=== PATIENT | female | born 1975 | race Two or more races ===

== ENCOUNTER → 2018-03-22 | Outpatient (CLI) | payer BC ==
--- NOTE | 2018-03-22 13:51 | US ---
EXAMINATION TYPE: US transvaginal DATE OF EXAM: 03/22/2018 COMPARISON: NONE CLINICAL HISTORY: N92.0 Menorrhea. dub, has IUD TECHNIQUE: Transvaginal (TV). Transvaginal sonographic images of the pelvis were acquired. EXAM MEASUREMENTS: Uterus: 9.8 x 5.5 x 6.1 cm Endometrial Stripe: 2.0 cm Right Ovary: 2.4 x 1.7 x 3.0 cm Left Ovary: 3.2 x 2.1 x 1.9 cm Some limitations due to overlying bowel gas. 1. Uterus: Anteverted mildly heterogeneous echopattern 2. Endometrium: thickened, IUD appears appropriately placed 3. Right Ovary: wnl 4. Left Ovary: wnl as seen 5. Bilateral Adnexa: wnl 6. Posterior cul-de-sac: no free fluid seen Endometrium is abnormally thickened and fundus up to just over 20 mm. No free fluid is seen in pelvis . Both ovaries are identified with peripheral follicle in right ovary seen. No suspicious adnexal jesse s are present. IMPRESSION: Heterogeneous thickened endometrium particularly towards fundus.
--- NOTE | 2018-03-23 11:49 | MM ---
Reason for exam: screening (asymptomatic). Last mammogram was performed 8 years and 1 month ago. History: Cancelled Right US Needle Biopsy of the right breast, February 16, 2010. Physical Findings: A clinical breast exam by your physician is recommended on an annual basis and results should be correlated with mammographic findings. MG 3D Screening Mammo W/Cad Bilateral CC and MLO view(s) were taken. Prior study comparison: February 26, 2010, bilateral diagnostic digital mammog. The breast tissue is heterogeneously dense. This may lower the sensitivity of mammography. Finding: There is a typically benign circumscribed round skin lesions bilaterally. No suspicious abnormality. ASSESSMENT: Benign, BI-RAD 2 RECOMMENDATION: Routine screening mammogram of both breasts in 1 year.
== END | disposition home or self-care (01) ==
LOC: RADUSWWP 12:08
PROVIDERS: ATTEND Family Medicine
DX: Z12.31 Encounter for screening mammogram for malignant neoplasm of breast (principal); R93.8 Abnormal findings on diagnostic imaging of other specified body structures; N92.0 Excessive and frequent menstruation with regular cycle
CPT/HCPCS: 76830; 77063; 77067

== ENCOUNTER → 2021-05-07 | Outpatient (CLI) | payer BC ==
--- NOTE | 2021-05-07 16:35 | ECHOS ---
STRESS ECHOCARDIOGRAM INDICATIONS: Chest pain BASELINE HEART RATE: 71 BASELINE BLOOD PRESSURE: 102/73 MAXIMUM HEART RATE: 160 MAXIMUM BLOOD PRESSURE: 154/54 85% MPHR: 150 100% MPHR: 176 METS: 11.7 MAXIMUM STAGE REACHED: 4 TOTAL EXERCISE TIME: 10:01 CLINICAL INFORMATION: Baseline EKG revealed normal sinus rhythm without significant ST-T changes. Patient walked on standard [place] protocol for 10 minutes, achieved a maximal heart rate of 160 beats per minute, developed fatigue and shortness of breath but did not have any angina or arrhythmia. EKG did not reveal any ST-segment changes to indicate ischemia. There was a lot of baseline artifact, but EKG at peak exercise did not reveal any ischemic changes. Patient did not have angina. There was no arrhythmia. By EKG criteria, this is a negative stress with excellent exercise capacity. Baseline echo images revealed normal wall motion and wall thickening of all segments. At peak exercise there was good augmentation of left ventricular wall motion and wall thickening of all segments, suggesting that there is no evidence of stress-induced ischemia on this study. FINAL IMPRESSION: 1. Excellent exercise capacity with a negative stress test by EKG criteria. 2. Normal stress echocardiogram without evidence of ischemia. MMODL / IJN: [id number] /
== END | disposition home or self-care (01) ==
LOC: RADNMMAIN 09:15
PROVIDERS: ATTEND Family Medicine
DX: R07.9 Chest pain, unspecified (principal)
CPT/HCPCS: 93351

== ENCOUNTER → 2021-05-26 | Outpatient (CLI) | payer BC ==
--- NOTE | 2021-05-26 14:17 | MM ---
Reason for exam: screening (asymptomatic). Last mammogram was performed 3 years and 2 months ago. History: Cancelled Right US Needle Biopsy of the right breast, February 16, 2010. Physical Findings: A clinical breast exam by your physician is recommended on an annual basis and results should be correlated with mammographic findings. MG 3D Screening Mammo W/Cad Bilateral CC and MLO view(s) were taken. XCCL view(s) were taken of the left breast. Prior study comparison: March 22, 2018, bilateral MG 3d screening mammo w/cad. The breast tissue is extremely dense which could obscure a lesion on mammography. There is no discrete abnormality. ASSESSMENT: Negative, BI-RAD 1 RECOMMENDATION: Routine screening mammogram of both breasts in 1 year.
== END | disposition home or self-care (01) ==
LOC: RADMAMWWP 09:18
PROVIDERS: ATTEND Family Medicine
DX: Z12.31 Encounter for screening mammogram for malignant neoplasm of breast (principal)
CPT/HCPCS: 77063; 77067

== ENCOUNTER 2022-01-07 08:04 | Day surgery (SDC) | payer BC ==
[2022-01-05 14:17] VITALS: BMI 28.3
[~2022-01-07 08:04] MED LIST: LACTATED RINGERS 1,000 ML IV SCH
[2022-01-07 08:30] VITALS: TEMP 96.9
[2022-01-07] MEDS ORDERED: fentaNYL (PF) 50 MCG/ML 2 ML AMP ONE (08:42)
[2022-01-07] MEDS ORDERED: MIDAZOLAM 2 MG/2 ML VIAL ONE (08:42)
[2022-01-07] MEDS ORDERED: PROPOFOL 10 MG/ML 20 ML VIAL IV ONE (08:42)
[2022-01-07] MEDS ORDERED: LIDOCAINE 2% INJ 20 MG/ML (2 ML VIAL) ONE (08:42)
--- NOTE | 2022-01-07 09:06 | P.PCN ---
Date of Procedure: 01/07/22 Procedure(s) Performed: Brief history: Patient is a pleasant 46-year-old white female scheduled for an elective upper endoscopy as well as colonoscopy as a part of evaluation of chrpoc abdominal pain and chronic diarrhea for the last several yearsduration. Procedure performed: Esophagogastroduodenoscop with biopsy Colonoscopy with biopsy Preoperative diagnosis: chronic abdominal pain Diarrhea of several months duration Anesthesia: MAC Procedure: After informed consent was obtained from the patient was brought into the endoscopy unit and IV sedation was administered by anesthesia under continuous monitoring. Initially upper endoscopy was done. The Olympus GF 160 video endoscope was inserted inserted into the mouth and esophagus intubated without any difficulty and was gradually advanced into the stomach and duodenum and carefully examined. The bulb and second part of the duodenum appeared normal. biopsies were done from the duodenum to rule out celiac disease.The scope was then withdrawn into the stomach adequately insufflated with air and upon careful examination the antrum had mild gastritis and biopsies were done from this area.The body, cardia and fundus appeared normal. The scope was then withdrawn into the esophagus. The GE junction was located at 40 cm to the incisors. It appeared regular with no erythema erosions or ulcerations. Rest of the esophagus appeared normal. Patient tolerated the procedure well. At this time the patient continued to remain sedation. Initial digital rectal examination was normal. Olympus CF 160 video colonoscope was then inserted into the rectum and gradually advanced to the cecum without any difficulty. Careful examination was performed as the scope was gradually being withdrawn. The prep was excellent. The cecum, ascending colon, transverse colon, descending colon, sigmoid colon and rectum appeared normal. random biopsies were done from ascending and descending colon to rule out microscopic/collagenous colitis Retroflexion was performed in the rectum and no lesions were noted. Patient tolerated the procedure well. Impression: 1.Upper endoscopy revealed mild antral gastritis and LA grade A reflux esophagitis 2.Colonoscopy was within normal limits with no evidence of colitis or colorectal neoplasia Recommendations: Findings of this examination were discussed with the patient as well umair family. She was advised to follow with the biopsy results. She can have a repeat screening colonoscopy in 10 years.
[2022-01-07 09:20] VITALS: PULSE 79; RESP 18
[2022-01-07 09:35] VITALS: BP 104/64
== END 2022-01-07 10:02 | disposition home or self-care (01) ==
LOC: ORWHC2ENDO 08:04
PROVIDERS: ATTEND Internal Medicine Gastroenterology
DX: Z12.11 Encounter for screening for malignant neoplasm of colon (principal); K90.0 Celiac disease; K21.00 Gastro-esophageal reflux disease with esophagitis, without bleeding; K29.50 Unspecified chronic gastritis without bleeding; Q85.00 Neurofibromatosis, unspecified; Z98.891 History of uterine scar from previous surgery; Z98.890 Other specified postprocedural states
CPT/HCPCS: 81025; 88305; 45380; 43239; J2250; J3010; J2704; J2001

== ENCOUNTER → 2022-09-21 | Outpatient (CLI) | payer OTHER ==
--- NOTE | 2022-09-21 21:25 | MR ---
EXAMINATION TYPE: MR brain wo/w con DATE OF EXAM: 09/21/2022 COMPARISON: MRI brain December 25, 2014 HISTORY: Neurofibromatosis Type 1, seizures. TECHNIQUE: Multiplanar, multisequence images of the brain and brainstem is performed without and with IV contras t, utilizing 6.5 mL intravenous Gadavist . FINDINGS: Diffusion weighted images demonstrate no evidence of a recent infarct or other diffusion ab normality. The ventricular system and cisternal spaces are normal in size and appearance. The brain volume is age appropriate. There are few scattered small foci of T2 hyperintensity throughout the whi te matter bilaterally. Lesions are nonspecific in appearance and distribution. Approximately 8 scatte red small lesions are redemonstrated. T2 coronal weighted images show hippocampal gyri to appear symm etric and felt within normal limits. T2 Star weighted images show no suspicious intraparenchymal bloo d product. Midline structures redemonstrate normal morphology. Slightly low-lying cerebellar tonsils and to leve l of foramen magnum redemonstrated. No progression from prior study. No greater than 5 mm inferior ex tension noted. Post contrast images demonstrate no abnormal enhancement. The dural venous sinuses quinn ear patent. The visualized sinuses are clear and the globes are intact. IMPRESSION: Mild to minimal nonspecific white matter changes redemonstrated. No abnormal enhancement seen. No significant change from prior MRI.
== END | disposition home or self-care (01) ==
LOC: RADMRIMAIN 19:24
PROVIDERS: ATTEND Psychiatry & Neurology Neurology
DX: G93.89 Other specified disorders of brain (principal); Q85.01 Neurofibromatosis, type 1; R56.9 Unspecified convulsions
CPT/HCPCS: 70553; A9585

== ENCOUNTER → 2023-03-24 | Outpatient (CLI) | payer OTHER ==
--- NOTE | 2023-03-24 13:43 | XR ---
EXAMINATION TYPE: XR forearm RT DATE OF EXAM: 03/24/2023 COMPARISON: None HISTORY: Injury, pain and tenderness TECHNIQUE: 2 view right forearm FINDINGS: No acute fracture or dislocation is evident. Joint spaces are preserved. Anterior fat-pad i s normal. No elevation of the posterior fat pad is evident. Soft tissues appear unremarkable. IMPRESSION: 1. No acute osseous abnormality right forearm
--- NOTE | 2023-03-24 13:44 | XR ---
EXAMINATION TYPE: XR elbow complete RT DATE OF EXAM: 03/24/2023 COMPARISON: None HISTORY: Injury, pain TECHNIQUE: 3 view right elbow FINDINGS: Radius aligns normally with the humerus. No acute fracture or dislocation is evident. Anter ior fat-pad is normal. No elevation of posterior fat pad is evident. Soft tissues are normal. Follow up exams can be performed 7-10 days from acute trauma for continued pain. IMPRESSION: 1. No acute osseous abnormality right elbow
--- NOTE | 2023-03-24 13:45 | XR ---
EXAMINATION TYPE: XR wrist complete RT DATE OF EXAM: 03/24/2023 COMPARISON: None HISTORY: Injury, pain TECHNIQUE: 4 view right wrist FINDINGS: No acute fracture or dislocation is evident. Joint spaces are preserved. Soft tissues are u nremarkable. Follow up exams can be performed 7-10 days from acute trauma for continued pain. There is pain at the anatomic snuffbox, nuclear medicine bone scan could be performed for additional evaluation. IMPRESSION: 1. No acute osseous abnormality right wrist
== END | disposition home or self-care (01) ==
LOC: RADXRMAIN 12:03
PROVIDERS: ATTEND Emergency Medicine
DX: S50.01XA Contusion of right elbow, initial encounter (principal); S50.11XA Contusion of right forearm, initial encounter; S60.211A Contusion of right wrist, initial encounter

== ENCOUNTER 2024-11-25 09:28 | Observation (INO) | payer OTHER ==
--- NOTE | 2024-11-25 09:42 | ED ---
Abdominal Pain HPI - General Chief Complaint: Abdominal Pain Stated Complaint: Irreg CT Time Seen by Provider: 11/25/24 09:41 Source: patient, RN notes reviewed, old records reviewed Mode of arrival: ambulatory Limitations: no limitations - History of Present Illness Initial Comments: 49-year-old female presented to the ER for evaluation of abnormal CT scan. Patient states for the past 3 weeks she has been having right-sided abdominal pain which prompted outpatient CAT scan to be ordered. She states the pain is sharp in nature with no radiation. She admits to nausea but denies any vomiting. She states her stools are soft but this is normal for her. She denies any dysuria, increase in frequency or hematuria. Patient does report intermittent vaginal discharge but states she is premenopausal. She states vaginal bleeding is nothing alarming". She has not taken anything for pain at this time.Upon chart review, CT abdomen pelvis completed outpatient on 11-25-2024 concerning of right adnexa possibly representing tubo-ovarian abscess in the setting of PID versus ovarian torsion. Patient sent to the emergency department for ultrasound and further evaluation. She denies any fevers, chills, chest pain, shortness of breath or peripheral edema. No other complaints. - Related Data Home Medications Medication Instructions Recorded Confirmed No Known Home Medications 01/05/22 11/25/24 Allergies Allergy/AdvReac Type Severity Reaction Status Date / Time No Known Allergies Allergy Verified 11/25/24 12:19 Review of Systems ROS Statement: Those systems with pertinent positive or pertinent negative responses have been documented in the HPI. ROS Other: All systems not noted in ROS Statement are negative. Past Medical History Past Medical History: Osteoarthritis (OA) Additional Past Medical History / Comment(s): NEUROFIBROMATOSIS, THICK STICKY STOOL History of Any Multi-Drug Resistant Organisms: None Reported Past Surgical History: Section Additional Past Surgical History / Comment(s): LASER EYE SURGERY, D & C, C SECTION X2 Past Anesthesia/Blood Transfusion Reactions: Motion Sickness Past Psychological History: Anxiety, Depression Smoking Status: Former smoker Past Alcohol Use History: Rare Past Drug Use History: None Reported - Past Family History Father Family Medical History: Cancer General Exam - General Exam Comments Initial Comments: Visual Physical Exam Vital signs reviewed General: Well-appearing, nontoxic, no acute distress. Head: Normocephalic, atraumatic Eyes: PERRLA, EOMI ENT: Airway patent Chest: Nonlabored breathing Skin: No visual rash, normal skin tone Neuro: Alert and oriented 3 Musculoskeletal: No gross abnormalities Limitations: no limitations General appearance: alert, in no apparent distress Respiratory exam: Present: normal lung sounds bilaterally. Absent: respiratory distress, wheezes, rales, rhonchi, stridor Cardiovascular Exam: Present: regular rate, normal rhythm, normal heart sounds. Absent: systolic murmur, diastolic murmur, rubs, gallop, clicks GI/Abdominal exam: Present: soft, tenderness (Exquisite right lower quadrant), normal bowel sounds Neurological exam: Present: alert, oriented X3, CN II-XII intact Skin exam: Present: warm, dry, intact, normal color. Absent: rash Course Vital Signs 11/25/24 09:31 Temperature 97.9 F Pulse Rate 98 Respiratory 20 Rate Blood Pressure 132/86 O2 Sat by Pulse 100 Oximetry - Reevaluation(s) Reevaluation #1: 11/25/24 12:[address] Esteban. He advised on observation admission for IV antibiotics and further evaluation. Medical Decision Making - Medical Decision Making I performed the quick note portion of this chart. Electronically signed by Prabhakar Estrada PA-C Was pt. sent in by a medical professional or institution ([facility], HIGH SCHOOL ENGLISH TEACHER, urgent care, hospital, or residential...) When possible be specific @ -Patient sent by PCP for abnormal CT scan. Did you speak to anyone other than the patient for history (EMS, parent, family, police, friend...)? What history was obtained from this source @ -No Did you review nursing and triage notes (agree or disagree)? Why? @ -I reviewed and agree with nursing and triage notes Were old charts reviewed (outside hosp., previous admission, EMS record, old EKG, old radiological studies, urgent care reports/EKG's, residential records)? Report findings @ -Yes, I reviewed outpatient CT scan completed on 11-25-2024. There is a heterogeneous appearance of the right adnexa possibly representing tubo-ovarian abscess in the setting of PID versus ovarian torsion. Cannot rule out mass. Appendix visualized and within normal limits. IUD present. Differential Diagnosis (chest pain, altered mental status, abdominal pain women, abdominal pain men, vaginal bleeding, weakness, fever, dyspnea, syncope, headache, dizziness, GI bleed, back pain, seizure, CVA, palpatations, mental health, musculoskeletal)? @ -Differential Abdominal Pain Women: Appendicitis, Cholecystitis, diverticulosis, ischemic bowel, pancreatitis, hepatitis, UTI, gastroenteritis, AAA, incarcerated hernia, bowel obstruction, constipation, inflammatory bowel, hepatitis, peptic ulcer disease, splenic infarction, perforated viscus, vulvitis, ovarian torsion, PID, kidney stone, placenta abruption, this is not meant to be an all-inclusive list EKG interpreted by me (3pts min.). @ -None done X-rays interpreted by me (1pt min.). @ -None done CT interpreted by me (1pt min.). @ -None done U/S interpreted by me (1pt. min.). @ -Transvaginal ultrasound showing a vascular mass to the right adnexa possibly reflecting tubo-ovarian abscess. Neoplasm not excluded. No definitive ultrasound evidence of torsion. What testing was considered but not performed or refused? (CT, X-rays, U/S, labs)? Why? @ -None What meds were considered but not given or refused? Why? @ -Patient refused analgesic medications. Did you discuss the management of the patient with other professionals (professionals i.e. , PA, HIGH SCHOOL ENGLISH TEACHER, lab, RT, psych nurse, social worker psychiatric, human resources office assistant, teacher, chief lending officer, assistant case manager)? Give summary @ -Case discussed with Dr. Esteban who advised on admission and IV antibiotics. Was smoking cessation discussed for >3mins.? @ -No Was critical care preformed (if so, how long)? @ -No Were there social determinants of health that impacted care today? How? (Homelessness, low income, unemployed, alcoholism, drug addiction, transportation, low edu. Level, literacy, decrease access to med. care, longterm, rehab)? @ -No Was there de-escalation of care discussed even if they declined (Discuss DNR or withdrawal of care, Hospice)? DNR status @ -No What co-morbidities impacted this encounter? (DM, HTN, Smoking, COPD, CAD, Cancer, CVA, ARF, Chemo, Hep., AIDS, mental health diagnosis, sleep apnea, morbid obesity)? @ -None Was patient admitted / discharged? Hospital course, mention meds given and route, prescriptions, significant lab abnormalities, going to OR and other pertinent info. @ -Admitted. 49-year-old female presented to the ER for evaluation of right sided abdominal pain with abnormal CT. Upon rooming, history and physical exam completed. Vitals within acceptable limits. Patient in no signs of acute distress nontoxic-appearing. There is exquisite right lower quadrant abdominal tenderness with normal bowel sounds. No rebound or guarding. Pelvic exam deferred as patient is in the hallway. Laboratory studies obtained showed a leukocytosis of 11.9 with a left shift. Lactic 0.8. Serum hCG less than 2.4. Transvaginal ultrasound with avascular mass of right adnexa could reflect tubo- ovarian abscess. Neoplasm is not excluded. No evidence of ovarian torsion bilaterally. Given concerning ultrasound findings, case was discussed with Dr. Vogt, MANAGER MANAGING, who advised admission for IV antibiotics. Patient started on IV Rocephin, p.o. Flagyl and p.o. doxycycline. Blood cultures obtained. Urine analysis and STD test pending at time of admission. Patient refusing anal gesic medications. Patient agreeable for admission at this time. Patient admitted in stable condition. Case discussed with ED attending, Dr. Rust. Undiagnosed new problem with uncertain prognosis? @ -No Drug Therapy requiring intensive monitoring for toxicity (Heparin, Nitro, Ins ulin, Cardizem)? @ -No Were any procedures done? @ -No Diagnosis/symptom? @ -Tubo-ovarian abscess Acute, or Chronic, or Acute on Chronic? @ -Acute Uncomplicated (without systemic symptoms) or Complicated (systemic symptoms)? @ -Complicated Side effects of treatment? @ -No Exacerbation, Progression, or Severe Exacerbation? @ -No Poses a threat to life or bodily function? How? (Chest pain, USA, AR, pneumonia, PE, COPD, DKA, ARF, appy, cholecystitis, CVA, Diverticulitis, Homicidal, Suicidal, threat to staff... and all critical care pts) @ -Yes can lead to sepsis and/or end organ dysfunction. - Lab Data Result diagrams: 11/25/24 11:11 11/25/24 11:11 Lab Results 11/25/24 11/25/24 11/25/24 Range/Units 11:11 11:11 11:11 WBC 11.9 H (3.8-10.6) k/uL RBC 4.99 (3.80-5.40) m/uL Hgb 15.1 (11.4-16.0) gm/dL Hct 43.9 (34.0-46.0) % MCV 87.9 (80.0-100.0) fL MCH 30.3 (25.0-35.0) pg MCHC 34.4 (31.0-37.0) g/dL RDW 12.0 (11.5-15.5) % Plt Count 376 (150-450) k/uL MPV 7.1 Neutrophils % 79 % Lymphocytes % 13 % Monocytes % 6 % Eosinophils % 2 % Basophils % 0 % Neutrophils # 9.4 H (1.3-7.7) k/uL Lymphocytes # 1.5 (1.0-4.8) k/uL Monocytes # 0.7 (0-1.0) k/uL Eosinophils # 0.2 (0-0.7) k/uL Basophils # 0.0 (0-0.2) k/uL Sodium 136 L (137-145) mmol/L Potassium 4.2 (3.5-5.1) mmol/L Chloride 96 L (98-107) mmol/L Carbon Dioxide 29 (22-30) mmol/L Anion Gap 11 mmol/L BUN 10 (7-17) mg/dL Creatinine 0.58 (0.52-1.04) mg/dL Est GFR (CKD-EPI)AfAm >90 (>60 ml/min/1.73 sqM) Est GFR (CKD-EPI)NonAf >90 (>60 ml/min/1.73 sqM) Glucose 91 (74-99) mg/dL Plasma Lactic Acid Soham 0.8 (0.7-2.0) mmol/L Calcium 9.7 (8.4-10.2) mg/dL Total Bilirubin 1.0 (0.2-1.3) mg/dL AST 30 (14-36) U/L ALT 29 (4-34) U/L Alkaline Phosphatase 135 H (38-126) U/L Total Protein 7.4 (6.3-8.2) g/dL Albumin 4.5 (3.5-5.0) g/dL Amylase 52 (30-110) U/L Lipase 104 (23-300) U/L HCG, Quant <2.4 mIU/mL - Radiology Data Radiology results: report reviewed, image reviewed Disposition Clinical Impression: Tubo-ovarian abscess Disposition: ADMITTED IP TO THIS [facility] Condition: Stable Referrals: Gisselle Foley DO [Primary Care Provider] - 1-2 days Time of Disposition: 12:34
--- NOTE | 2024-11-25 11:03 | US ---
EXAMINATION TYPE: US pelvis complete transvag DATE OF EXAM: 11/25/2024 COMPARISON: Same day CT CLINICAL INDICATION: Female, 49 years old with history of abd ct/RLQ abd pain; Pt states RLQ pain x 3 weeks, unknown LMP, abnormal CT TECHNIQUE: Transvaginal (TV) and Transabdominal (TA) . Transabdominal grayscale sonographic images of the pelvis were acquired. Transvaginal sonographic im ages were medically necessary to better assess the following anatomy: Right Adnexa Doppler imaging: Color Doppler Images were obtained. Spectral doppler images were obtained. FINDINGS: Date of LMP: Unknown EXAM MEASUREMENTS: Uterus: 13.1 x 4.9 x 6.5 cm Endometrial Stripe: 0.4 cm Right Ovary: 2.6 x 1.9 x 2.1 cm Left Ovary: 2.0 x 1.5 x 2.6 cm 1. Uterus: Anteverted Large with multiple (up to 3) solid lesions within uterine fundus 1)- right uterine fundus= 4.7 x 3.8 x 4.6 cm 2)- midline near endometrium= 1.9 x 1.8 x 2.1 cm 3)- left uterine fundus= 1.8 x 1.5 x 1.8 cm 2. Endometrium: Difficult to visualize due to multiple solid lesions displacing endo, IUD difficult to visualize also due to multiple solid lesions displacing 3. Right Ovary: wnl 4. Left Ovary: wnl Spectral, color and waveform doppler imaging shows good arterial and venous flow within the ovaries ; there is no evidence for ovarian torsion. 5. Bilateral Adnexa: Large, complex mass within right adnexa, appears to be possibly separate from r ight ovary, however that is difficult to be certain = 5.1 x 3.9 x 6.4 cm, there is vascularity within this mass 6. Posterior cul-de-sac: wnl IMPRESSION: Vascular mass right adnexa could reflect tubo-ovarian abscess. Neoplasm is not excluded. No definite ultrasound evidence for torsion. O-RADS 2021 [email or web address] [facility], , 11/25/2024 11:01 AM
[2024-11-25 11:33] LABS: ALT 29 U/L (4-34); AST 30 U/L (14-36); African American GFR (CKD) >90 (>60 ml/min/1.73 sqM); Albumin 4.5 g/dL (3.5-5.0); Alkaline Phosphatase 135 U/L (38-126); Amylase 52 U/L (30-110); Anion Gap 11 mmol/L; Blood Urea Nitrogen 10 mg/dL (7-17); Calcium 9.7 mg/dL (8.4-10.2); Carbon Dioxide 29 mmol/L (22-30); Chloride 96 mmol/L (98-107); Glucose 91 mg/dL (74-99); Lipase 104 U/L (23-300); Non-African American GFR(CKD) >90 (>60 ml/min/1.73 sqM); Potassium 4.2 mmol/L (3.5-5.1); Sodium 136 mmol/L (137-145); Total Protein 7.4 g/dL (6.3-8.2)
[2024-11-25 11:39] LABS: Basophils % (A) 0 %; Eosinophils # (A) 0.2 k/uL (0-0.7); Eosinophils % (A) 2 %; HCT 43.9 % (34.0-46.0); HGB 15.1 gm/dL (11.4-16.0); Lymphocytes # (A) 1.5 k/uL (1.0-4.8); Lymphocytes % (A) 13 %; MCH 30.3 pg (25.0-35.0); MCHC 34.4 g/dL (31.0-37.0); MCV 87.9 fL (80.0-100.0); Mean Platelet Volume 7.1; Monocytes # (A) 0.7 k/uL (0-1.0); Monocytes % (A) 6 %; Neutrophils # (A) 9.4 k/uL (1.3-7.7); Neutrophils % (A) 79 %; Platelet Count 376 k/uL (150-450); RBC 4.99 m/uL (3.80-5.40); WBC 11.9 k/uL (3.8-10.6)
[2024-11-25 11:49] LABS: HCG,Quantitative Serum <2.4 mIU/mL
[2024-11-25] MEDS ORDERED: ACETAMINOPHEN TAB 325 MG TAB PO PRN (12:34)
[2024-11-25] MEDS ORDERED: NALOXONE 0.4 MG/ML 1 ML VIAL IV PRN (12:34)
[2024-11-25] MEDS ORDERED: ONDANSETRON 4 MG/2 ML VIAL IVP PRN (12:34)
[2024-11-25] MEDS ORDERED: IBUPROFEN 400 MG TAB PO PRN (12:34)
[2024-11-25] MEDS: SODIUM CHLORIDE 0.9% 1,000 ML IV SCH (14:37)
[2024-11-25] MEDS: metroNIDAZOLE 500 MG TAB PO SCH (14:45)
[2024-11-25] MEDS: DOXYCYCLINE 100 MG TABLET PO SCH (14:45)
[2024-11-25 14:57] LABS: Appearance,Urine Clear (Clear); Bilirubin,Urine Negative (Negative); Blood,Urine Negative (Negative); Color,Urine Colorless; Glucose,Urine (UA) Negative (Negative); Ketones,Urine Trace (Negative); Leukocyte Esterase,Urine Negative (Negative); Nitrite,Urine Negative (Negative); Protein,Urine Negative (Negative); Specific Gravity,Urine 1.034 (1.001-1.035); Urobilinogen,Urine <2.0 mg/dL (<2.0)
--- NOTE | 2024-11-25 17:27 | P.HPOB ---
History of Present Illness H&P Date: 11/25/24 Chief Complaint: Right lower quadrant pain The patient is a 49-year-old 3 para 2-0-1-2 who is known to me through the office for routine gynecologic care. She presented to her primary care doctor with 2 to 3 weeks of right lower quadrant pain which was troublesome in nature and ultimately prompted a CAT scan ordered as an outpatient. The results of the CAT scan demonstrated what was thought to possibly be a right tubo- ovarian abscess with an area of roughly 4 x 5 x 6 cm of vascularity in the right adnexal region. She was sent to the emergency room where she then had further ultrasound which confirmed the findings as noted above. She was admitted with the possible diagnosis of right tubo-ovarian abscess though the imaging studies do not describe a mass consistent with this finding. They instead describe it as a vascular mass. Review of her office chart demonstrates that at my last exam I felt that she had a fibroid uterus which has been previously documented with a fibroid on the right side of roughly similar size and shape to the mass described. My examination also suggested that the fibroid might be pedunculated in nature. The patient denies any fever though she has had some nausea without vomiting. She has no other GI concerns. She additionally carries a diagnosis of neurofibromatosis for which she has fibromas scattered over her entire body. Obstetrical history: 3 para 2-0-1-2 with 2 term vaginal deliveries. Method of contraception is IUD (Mirena). Gynecologic history: Unremarkable with no history of any infections to include STDs. The patient denies any concern for STDs as she had recent negative testing. Review of Systems Review of systems is confined to history of present illness. Past Medical History Past Medical History: Osteoarthritis (OA) Additional Past Medical History / Comment(s): NEUROFIBROMATOSIS, THICK STICKY STOOL History of Any Multi-Drug Resistant Organisms: None Reported Past Surgical History: Section Additional Past Surgical History / Comment(s): LASER EYE SURGERY, D & C, C SECTION X2 Past Anesthesia/Blood Transfusion Reactions: Motion Sickness Past Psychological History: Anxiety, Depression Smoking Status: Former smoker Past Alcohol Use History: Rare Past Drug Use History: None Reported - Past Family History Father Family Medical History: Cancer Medications and Allergies Home Medications Medication Instructions Recorded Confirmed Type No Known Home Medications 01/05/22 11/25/24 History Allergies Allergy/AdvReac Type Severity Reaction Status Date / Time chamomile flower AdvReac Nausea & Verified 11/25/24 16:01 Vomiting Exam Vital Signs Temp Pulse Pulse Resp BP BP Pulse Ox 11/25/24 15:57 98.2 F 93 16 129/90 100 11/25/24 14:30 98.4 F 105 H 24 117/74 100 11/25/24 09:31 97.9 F 98 20 132/86 100 Intake and Output 11/25/24 11/25/24 11/25/24 06:59 14:59 22:59 Other: Weight 58.967 kg General, this is a well-developed, well-nourished white female in no acute distress. She does have scattered fibromas over her entire skin surface. Her heart has a regular rhythm and rate without murmur. Her lungs are clear to auscultation bilaterally in all [place]. Her abdomen is nondistended, soft, without any palpable masses but does have some point tenderness in the right lower quadrant. There is no guarding or rebound. Her extremities are without any cyanosis, clubbing, or edema and are nontender to palpation bilaterally. Pelvic examination is deferred at this time and likely to be performed tomorrow. Results Result Diagrams: 11/25/24 11:11 11/25/24 11:11 Abnormal Lab Results - Last 24 Hours (Table) 11/25/24 11/25/24 11/25/24 Range/Units 11:11 11:11 11:23 WBC 11.9 H (3.8-10.6) k/uL Neutrophils # 9.4 H (1.3-7.7) k/uL Sodium 136 L (137-145) mmol/L Chloride 96 L (98-107) mmol/L Alkaline Phosphatase 135 H (38-126) U/L Urine Ketones Trace H (Negative) Assessment and Plan (1) Right lower quadrant pain Current Visit: Yes Status: Acute Code(s): R10.31 - RIGHT LOWER QUADRANT PAIN SNOMED Code(s): 138609173 Plan: After reviewing her history and physical examination from the office, I strongly suspect a degenerating pedunculated uterine fibroid. I will review the images with radiology tomorrow. In the meantime we will continue with IV antibiotic therapy as prescribed from the emergency room as we do not have any other working diagnosis aside from possible tubo-ovarian abscess, a diagnosis I highly doubt at this time. CBC will be repeated in the morning. In the meantime, she has diet and activity as tolerated. We will continue IV fluids to keep open in order to continue to provide IV antibiotics until further diagnostic conclusions are made.
[2024-11-26 05:49] LABS: Basophils % (A) 0 %; Eosinophils # (A) 0.3 k/uL (0-0.7); Eosinophils % (A) 3 %; HCT 39.6 % (34.0-46.0); HGB 12.9 gm/dL (11.4-16.0); Lymphocytes # (A) 1.6 k/uL (1.0-4.8); Lymphocytes % (A) 14 %; MCH 28.9 pg (25.0-35.0); MCHC 32.6 g/dL (31.0-37.0); MCV 88.8 fL (80.0-100.0); Mean Platelet Volume 7.2; Monocytes # (A) 0.5 k/uL (0-1.0); Monocytes % (A) 5 %; Neutrophils # (A) 8.4 k/uL (1.3-7.7); Neutrophils % (A) 76 %; Platelet Count 343 k/uL (150-450); RBC 4.46 m/uL (3.80-5.40); RDW 12.1 % (11.5-15.5); WBC 10.9 k/uL (3.8-10.6)
--- NOTE | 2024-11-26 08:27 | P.PN ---
Subjective Progress Note Date: 11/26/24 Principal diagnosis: Right lower quadrant pain, pelvic mass The patient is tolerating regular diet and otherwise ambulating routinely, performing all activities of daily living. She reports that her pain is similar to yesterday though she does not feel unwell. She has had no nausea or vomiting or any other GI concerns. Objective - Vital Signs Vital signs: Vital Signs Temp 98.7 F 11/25/24 23:40 Pulse 99 11/25/24 23:40 Resp 17 11/25/24 23:40 BP 115/56 11/25/24 23:40 Pulse Ox 100 11/25/24 23:40 FiO2 Intake & Output 11/25/24 11/26/24 11/26/24 18:59 06:59 18:59 Intake Total 1000 Balance 1000 Weight 58.967 kg Intake: Intake, IV Titration 1000 Amount Sodium Chloride 0.9% 1, 1000 000 ml @ 50 mls/hr IV . Q20H [facility] Rx#:[id number] Other: # Voids 1 2 - Exam In general, this is a well-developed well-nourished young woman in no acute distress. Her abdomen is nondistended, soft, with some point tenderness in the right lower quadrant as previously documented. There is no guarding or rebound nor there are any palpable masses. Remedies are without any cyanosis, clubbing, or edema, nontender to palpation. - Labs CBC & Chem 7: 11/26/24 05:28 11/25/24 11:11 Labs: Abnormal Lab Results - Last 24 Hours (Table) 11/25/24 11/25/24 11/25/24 Range/Units 11:11 11:11 11:23 WBC 11.9 H (3.8-10.6) k/uL Neutrophils # 9.4 H (1.3-7.7) k/uL Sodium 136 L (137-145) mmol/L Chloride 96 L (98-107) mmol/L Alkaline Phosphatase 135 H (38-126) U/L Urine Ketones Trace H (Negative) 11/26/24 Range/Units 05:28 WBC 10.9 H (3.8-10.6) k/uL Neutrophils # 8.4 H (1.3-7.7) k/uL Sodium (137-145) mmol/L Chloride (98-107) mmol/L Alkaline Phosphatase (38-126) U/L Urine Ketones (Negative) Assessment and Plan (1) Right lower quadrant pain Current Visit: Yes Status: Acute Code(s): R10.31 - RIGHT LOWER QUADRANT PAIN SNOMED Code(s): 257310673 Plan: My suspicion remains that the findings on CT and ultrasound are consistent with a degenerating uterine fibroid. I will review the films with radiology today. In the interim, we will continue IV antibiotics given her working admission diagnosis from the ER of possible tubo-ovarian abscess which I highly doubt. She has been afebrile since admission and her white count is slightly lower this morning. I would anticipate discharge either late today or early tomorrow.
[2024-11-26 14:01] LABS: C. trachomatis,PCR Negative (Negative)
[2024-11-26 14:05] LABS: N. gonorrhoeae,PCR Negative (Negative)
[2024-11-26] MEDS: SENNOSIDES-DOCUSATE SODIUM 1 EACH TAB PO STA (20:53)
[2024-11-27 09:00] VITALS: BP 105/68; PULSE 60; RESP 16; TEMP 98.8
--- NOTE | 2024-11-27 09:12 | P.DS ---
Providers Date of admission: 11/25/24 14:23 Expected date of discharge: 11/27/24 Attending physician: Sary Moore MD Primary care physician: Gisselle Foley - Discharge Diagnosis(es) (1) Right lower quadrant pain Current Visit: Yes Status: Acute Hospital Course: Patient is a 49-year-old woman who presented to the emergency room with about 2 weeks worth of right lower quadrant pain which her primary care doctor ordered a CT scan. The CAT scan showed a right lower quadrant somewhat vascular mass in the range of 4 x 5 x 6 cm which was presumptively at that time consistent with a possible tubo-ovarian abscess. She denied any fever throughout but did have a slightly elevated white blood cell count. She was admitted with that diagnosis and started on antibiotics. Review of her chart in the office demonstrated that she has known fibroids and a presumptive pedunculated right adnexal fibroid which is the most likely explanation of her findings. She likely has a degenerating pedunculated fibroid. She remained afebrile throughout her stay and her pain dissipated slightly though is still present. She was afebrile for more than 48 hours and was deemed stable for discharge on hospital day #3. She was discharged home to follow-up in the office in 2 weeks time for recheck and will likely have a repeat ultrasound ordered at that time. Discharge medications included only [id number] analgesic pain medications as well as any normal home medications. She was additionally provided with prescription for doxycycline 100 mg, 1 p.o. twice daily for 7 days, #14 dispensed. Instructions included calling for any significantly increased pain or fever or any other concerns. She understood her instructions and agrees to follow-up as noted above. Procedures: #1. IV antibiotics Patient Condition at Discharge: Stable Plan - Discharge Summary New Discharge Prescriptions: No Action No Known Home Medications Discharge Medication List No Known Home Medications 01/05/22 [History] Follow up Appointment(s)/Referral(s): Gisselle Foley DO [Primary Care Provider] - 1-2 days Lonny Esteban MD [STAFF PHYSICIAN] - 2 Weeks Discharge Disposition: HOME SELF-CARE
== END 2024-11-27 09:40 | disposition home or self-care (01) ==
LOC: EC 09:28 → 4FBP 14:23 → INTOOBSV 14:23 → 4FBP 14:58
PROVIDERS: ADMIT Obstetrics & Gynecology; ATTEND Obstetrics & Gynecology
DX: R10.31 Right lower quadrant pain (principal); R11.0 Nausea; Q85.00 Neurofibromatosis, unspecified; Z87.891 Personal history of nicotine dependence
CPT/HCPCS: 96365; 99285; 36415; 80053; 82150; 83605; 83690; 85025 ×2; 81003; 84702; 87040; 87491; 87591; 93975; 76856; 76830; G0378 ×3; J0696 ×2

== ENCOUNTER → 2024-11-25 | Outpatient (CLI) | payer OTHER ==
--- NOTE | 2024-11-25 09:14 | CT ---
EXAMINATION TYPE: CT abdomen pelvis w con DATE OF EXAM: 11/25/2024 9:06 AM COMPARISON: None. CLINICAL INDICATION: Female, 49 years old with history of R10.31 RLQ PAIN R19.4 CONSTIPATION; TECHNIQUE: Axial CT abdomen pelvis w con;Sagittal and coronal reformats were created on a separate w orkstation. Contrast used:300 mL of Isovue 300 , (none if empty) Oral contrast used: (none if empty) CT DLP: 781 mGycm, Automated exposure control for dose reduction was used. FINDINGS: LOWER CHEST: Unremarkable ABDOMEN LIVER: Unremarkable GALLBLADDER AND BILE DUCTS: Unremarkable. PANCREAS: Unremarkable. SPLEEN: Unremarkable. ADRENAL GLANDS: Unremarkable. KIDNEYS AND URETERS: No evidence of hydronephrosis or renal calculus. The ureters are unremarkable. PELVIS BLADDER: No evidence for wall thickening or mass given limitations of exam. REPRODUCTIVE: Heterogenous appearance of the right ovary/right adnexa measuring at least 3.8 x 3.8 cm . Heterogenous appearance of the uterus with IUD present ABDOMEN & PELVIS STOMACH AND BOWEL: No evidence of bowel obstruction. The appendix is visualized and within normal mcqueen its. PERITONEUM/RETROPERITONEUM: No evidence of pneumoperitoneum or free fluid. VASCULATURE: No evidence of aortic aneurysm. MUSCULOSKELETAL: No acute osseous abnormalities LYMPH NODES: No gross evidence for lymphadenopathy. SOFT TISSUE/ABDOMINAL WALL: Unremarkable IMPRESSION: 1. Heterogenous appearance of the right adnexa possibly representing tubo-ovarian abscess in the set ting of pelvic inflammatory disease versus ovarian torsion. Underlying mass is felt to be less likely given patient's age. Further evaluation with pelvic ultrasound is recommended clinical correlation a dvised. 2. The appendix is visualized and within normal limits. 3. IUD present with located within a heterogenous uterus. Correlate for signs and symptoms of pelvic inflammatory disease likely underlying fibroids present. Patient to be notified to return for further evaluation by gallery or museum technician. [facility], , 11/25/2024 9:12 AM
== END | disposition home or self-care (01) ==
LOC: RADCTMAIN 06:55
PROVIDERS: ATTEND Family Medicine
DX: N83.8 Other noninflammatory disorders of ovary, fallopian tube and broad ligament (principal); R19.4 Change in bowel habit; Z97.5 Presence of (intrauterine) contraceptive device
CPT/HCPCS: 74177; Q9967